=== PATIENT | female | born 1975 | race Caucasian/White ===

== ENCOUNTER 2016-05-22 17:49 | Emergency (ER) | payer OTHER ==
--- NOTE | 2016-05-22 18:44 | ED ---
Alcohol HPI - General Chief Complaint: Alcohol Stated Complaint: ETOH Time Seen by Provider: 05/22/16 18:14 Source: patient Mode of arrival: ambulatory Limitations: no limitations - History of Present Illness Initial Comments: 41-year-old female with history of alcoholism as over the last several months. Been eating well. His posterior feet swelling she would like to quit she has no suicidal ideation. 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 His been drinking up to a fifth of alcohol per day. No nausea no vomiting no diarrhea no chest pain shortness breath dizziness no focal numbness or weakness no unsteadiness. Last drink 3-4 hours ago - Related Data Home Medications Medication Instructions Recorded Confirmed Albuterol Inhaler [Ventolin Hfa 2 puff INHALATION RT-Q6H PRN 05/22/16 05/22/16 Inhaler] Multivitamin [Multivitamins Adult 1 tab PO DAILY 05/22/16 05/22/16 Gummies] Previous Rx's Medication Instructions Recorded LORazepam [Ativan] 1 mg PO DIRECTED #16 tab 05/22/16 Thiamine [Vitamin B-1] 100 mg PO DAILY #30 tablet 05/22/16 Allergies Allergy/AdvReac Type Severity Reaction Status Date / Time codeine Allergy Hallucinati Verified 05/22/16 18:52 ons Review of Systems ROS Statement: Those systems with pertinent positive or pertinent negative responses have been documented in the HPI. ROS Other: All systems not noted in ROS Statement are negative. Eyes: Denies: eye pain ENT: Denies: ear pain Respiratory: Denies: cough Cardiovascular: Denies: chest pain Endocrine: Denies: fatigue Gastrointestinal: Denies: nausea, vomiting, diarrhea Skin: Denies: rash Neurological: Denies: headache Psychiatric: Reports: depression. Denies: anxiety Hematological/Lymphatic: Denies: easy bleeding, easy bruising Past Medical History Past Medical History: No Reported History History of Any Multi-Drug Resistant Organisms: None Reported Past Surgical History: Orthopedic Surgery Past Psychological History: Anxiety Smoking Status: Current every day smoker Past Alcohol Use History: Abuse, Daily, Heavy Past Drug Use History: None Reported General Exam Limitations: no limitations General appearance: alert Head exam: Present: atraumatic Eye exam: Present: normal appearance, PERRL, EOMI ENT exam: Present: normal oropharynx, mucous membranes moist Respiratory exam: Present: normal lung sounds bilaterally Cardiovascular Exam: Present: regular rate, normal heart sounds GI/Abdominal exam: Present: soft, tenderness, guarding Neurological exam: Present: alert, CN II-XII intact Psychiatric exam: Present: normal affect, normal mood Skin exam: Present: warm, dry Course Vital Signs 05/22/16 17:57 Temperature 98.1 F Pulse Rate 118 H Respiratory 20 Rate Blood Pressure 135/94 O2 Sat by Pulse 99 Oximetry Medical Decision Making - Medical Decision Making Discussed with patient that she has some swelling prior from poor nutrition she needs to take a multivitamin will place her on thiamine also Ativan if she is to follow-up with believe she would do well taking some Zoloft or other antidepressant have recommended AA as well as going to a treatment program with outpatient or inpatient - Lab Data Result diagrams: 05/22/16 18:57 05/22/16 18:57 Lab Results 05/22/16 05/22/16 05/22/16 Range/Units 18:57 18:57 18:57 WBC 5.6 (3.8-10.6) k/uL RBC 3.97 (3.80-5.40) m/uL Hgb 11.4 (11.4-16.0) gm/dL Hct 36.9 (34.0-46.0) % MCV 92.8 (80.0-100.0) fL MCH 28.8 (25.0-35.0) pg MCHC 31.0 (31.0-37.0) g/dL RDW 27.7 H (11.5-15.5) % Plt Count 269 (150-450) k/uL Neutrophils % (Manual) 58.0 % Lymphocytes % (Manual) 31.0 % Monocytes % (Manual) 10.0 % Eosinophils % (Manual) 1.0 % Neutrophils # (Manual) 3.2 (1.3-7.7) k/uL Lymphocytes # (Manual) 1.7 (1.0-4.8) k/uL Monocytes # (Manual) 0.6 (0-1.0) k/uL Eosinophils # (Manual) 0.1 (0-0.7) k/uL Nucleated RBCs 0 (0-0) /100 WBC Manual Slide Review Performed Dimorphic RBCs Present Polychromasia Present Poikilocytosis (manual Present Anisocytosis Marked Anisocytosis (manual) Present Microcytosis Slight Macrocytosis Moderate Stomatocytes Present PT 11.2 (9.0-12.0) sec INR 1.1 (<1.1) Sodium 141 (137-145) mmol/L Potassium 4.2 (3.5-5.1) mmol/L Chloride 100 (98-107) mmol/L Carbon Dioxide 23 (22-30) mmol/L Anion Gap 18 mmol/L BUN 7 (7-17) mg/dL Creatinine 0.50 L (0.52-1.04) mg/dL Est GFR (MDRD) Af Amer >60 (>60 ml/min/1.73 sqM) Est GFR (MDRD) Non-Af >60 (>60 ml/min/1.73 sqM) Glucose 99 (74-99) mg/dL Calcium 9.4 (8.4-10.2) mg/dL Total Bilirubin 0.8 (0.2-1.3) mg/dL AST 287 H (14-36) U/L ALT 263 H (9-52) U/L Alkaline Phosphatase 182 H (38-126) U/L Total Protein 6.1 L (6.3-8.2) g/dL Albumin 3.5 (3.5-5.0) g/dL Serum Alcohol 288 mg/dL Disposition Clinical Impression: Alcoholic hepatitis, Alcohol abuse Disposition: HOME SELF-CARE Condition: Fair Instructions: Alcohol Withdrawal (ED) Prescriptions: LORazepam [Ativan] 1 mg PO DIRECTED #16 tab Thiamine [Vitamin B-1] 100 mg PO DAILY #30 tablet Time of Disposition: 20:34
[2016-05-22 19:20] LABS: ALT 263 U/L (9-52); AST 287 U/L (14-36); Alkaline Phosphatase 182 U/L (38-126); Anion Gap 18 mmol/L; Blood Urea Nitrogen 7 mg/dL (7-17); Calcium 9.4 mg/dL (8.4-10.2); Carbon Dioxide 23 mmol/L (22-30); Chloride 100 mmol/L (98-107); Glucose 99 mg/dL (74-99); Non-African American GFR(MDRD) >60 (>60 ml/min/1.73 sqM); Potassium 4.2 mmol/L (3.5-5.1); Sodium 141 mmol/L (137-145); Total Bilirubin 0.8 mg/dL (0.2-1.3); Total Protein 6.1 g/dL (6.3-8.2)
[2016-05-22 19:21] LABS: Anisocytosis Marked; CH 29.4; CHCM 31.8; HCT 36.9 % (34.0-46.0); HDW 2.45; HGB 11.4 gm/dL (11.4-16.0); MCH 28.8 pg (25.0-35.0); MCV 92.8 fL (80.0-100.0); Macrocytosis Moderate; Mean Platelet Volume 6.8; Microcytosis Slight; RBC 3.97 m/uL (3.80-5.40); WBC 5.6 k/uL (3.8-10.6); WBC (Perox) 5.59
[2016-05-22 19:24] LABS: INR 1.1 (<1.1); Prothrombin Time 11.2 sec (9.0-12.0); RDW 27.7 % (11.5-15.5)
[2016-05-22 19:30] LABS: Alcohol 288 mg/dL
[2016-05-22 19:50] LABS: Add Differential Manual Differential
[2016-05-22 19:53] LABS: Nucleated Red Blood Cells 0 /100 WBC (0-0); Polychromasia Present; Stomatocytes Present; Total Cells Counted 100
[2016-05-22 19:54] LABS: Manual Review Performed
[2016-05-22 20:54] VITALS: BP 118/78; PULSE 103; RESP 18; TEMP 98
== END 2016-05-22 20:53 | disposition home or self-care (01) ==
LOC: EC 17:49
DX: K70.10 Alcoholic hepatitis without ascites (principal); M79.89 Other specified soft tissue disorders; F17.200 Nicotine dependence, unspecified, uncomplicated; Z79.899 Other long term (current) drug therapy; Z88.5 Allergy status to narcotic agent
CPT/HCPCS: 36415; 80053; 80320; 82075; 85025; 85610; 99284

== ENCOUNTER 2016-07-09 22:57 | Emergency (ER) | payer OTHER ==
[2016-07-09 23:12] VITALS: BP 135/103; PULSE 129; RESP 18; TEMP 98
--- NOTE | 2016-07-09 23:29 | ED ---
Alcohol HPI - General Chief Complaint: Alcohol Stated Complaint: ETOH Time Seen by Provider: 07/09/16 23:15 Source: patient, family, RN notes reviewed Mode of arrival: ambulatory Limitations: no limitations - History of Present Illness Initial Comments: This is a 41-year-old female presents emergency Department with chief complaint of alcohol abuse. Patient states she's long history of alcohol abuse multiple stents to be and so her. Patient is brought here by family request medications for with jaws. Patient did drink today and she normally drinks 1/5 of alcohol daily. Patient states that she is ready be sober is currently being set up with a and safe environment at home. Patient's is intoxicated and brought by family at this time. Patient has no physical complaints. Patient has a chest pain, shortness breath, nausea, vomiting, seizures. Patient states she does wake up shaky after 8-12 hours and not drinking. - Related Data Previous Rx's Medication Instructions Recorded chlordiazePOXIDE HCl [Librium] 25 mg PO QID #20 capsule 07/09/16 Allergies Allergy/AdvReac Type Severity Reaction Status Date / Time codeine Allergy Hallucinati Verified 07/09/16 23:12 ons Review of Systems ROS Statement: Those systems with pertinent positive or pertinent negative responses have been documented in the HPI. ROS Other: All systems not noted in ROS Statement are negative. Past Medical History Past Medical History: No Reported History History of Any Multi-Drug Resistant Organisms: None Reported Past Surgical History: Orthopedic Surgery Past Psychological History: Anxiety Smoking Status: Current every day smoker Past Alcohol Use History: Abuse, Daily, Heavy Past Drug Use History: None Reported General Exam Limitations: no limitations General appearance: alert, in no apparent distress Head exam: Present: atraumatic, normocephalic, normal inspection Eye exam: Present: normal appearance, PERRL, EOMI. Absent: scleral icterus, conjunctival injection, periorbital swelling ENT exam: Present: normal exam, normal oropharynx, mucous membranes moist Respiratory exam: Present: normal lung sounds bilaterally. Absent: respiratory distress, wheezes, rales, rhonchi, stridor Cardiovascular Exam: Present: normal rhythm, tachycardia, normal heart sounds. Absent: systolic murmur, diastolic murmur, rubs, gallop, clicks GI/Abdominal exam: Present: soft, normal bowel sounds. Absent: distended, tenderness, guarding, rebound, rigid Neurological exam: Present: alert, oriented X3, CN II-XII intact Course Vital Signs 07/09/16 23:09 Temperature 98.0 F Pulse Rate 129 H Respiratory 18 Rate Blood Pressure 135/103 O2 Sat by Pulse 97 Oximetry Medical Decision Making - Medical Decision Making 41-year-old female presented emergency department for alcohol abuse. Patient be given Librium at this time. Patient will follow up outpatient with primary care physician, a and [place] if needed. Return parameters were discussed. Disposition Clinical Impression: Alcohol abuse Disposition: HOME SELF-CARE Condition: Stable Instructions: Alcohol Withdrawal (ED) Additional Instructions: Please return to the Emergency Department if symptoms worsen or any other concerns. Prescriptions: chlordiazePOXIDE HCl [Librium] 25 mg PO QID #20 capsule Referrals: None,Stated [Primary Care Provider] - 1-2 days Time of Disposition: 23:28
== END 2016-07-09 23:43 | disposition home or self-care (01) ==
LOC: EC 22:57
DX: F10.10 Alcohol abuse, uncomplicated (principal); R00.0 Tachycardia, unspecified; F17.200 Nicotine dependence, unspecified, uncomplicated; Z88.5 Allergy status to narcotic agent
CPT/HCPCS: 99283

== ENCOUNTER 2017-03-08 14:36 | Emergency (ER) | payer OTHER ==
[2017-03-08 15:04] VITALS: TEMP 98.1
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
[2017-03-08 16:07] VITALS: BP 132/79; PULSE 78; RESP 18
== END 2017-03-08 16:06 | disposition home or self-care (01) ==
LOC: SUPCPDRO 14:36 → EC 14:36
DX: S40.011A Contusion of right shoulder, initial encounter (principal); S70.02XA Contusion of left hip, initial encounter; S20.211A Contusion of right front wall of thorax, initial encounter; S70.01XA Contusion of right hip, initial encounter; S80.12XA Contusion of left lower leg, initial encounter; S00.83XA Contusion of other part of head, initial encounter; F17.200 Nicotine dependence, unspecified, uncomplicated; Z88.5 Allergy status to narcotic agent; Y09 Assault by unspecified means; Y92.009 Unspecified place in unspecified non-institutional (private) residence as the place of occurrence of the external cause
CPT/HCPCS: 99284

== ENCOUNTER 2017-12-08 21:16 | Emergency (ER) | payer BC, OTHER ==
[2017-12-08 21:41] VITALS: RESP 18
[2017-12-08 22:15] LABS: Amorphous Sediment,Urine Rare /hpf; Appearance,Urine Cloudy (Clear); Bilirubin,Urine Negative (Negative); Blood,Urine Negative (Negative); Color,Urine Yellow; Glucose,Urine (UA) Negative (Negative); Ketones,Urine Negative (Negative); Leukocyte Esterase,Urine Small (Negative); Mucus,Urine Rare /hpf; Nitrite,Urine Negative (Negative); Protein,Urine Trace (Negative); RBC,Urine 1 /hpf (0-5); Specific Gravity,Urine 1.015 (1.001-1.035); Squamous Epithelial Cell,Urine <1 /hpf (0-4); WBC,Urine 23 /hpf (0-5)
[2017-12-08] MEDS ORDERED: NITROFURANTOIN MONOHYD/M-CRYST 100 MG CAP PO STA (22:42)
[2017-12-08] MEDS ORDERED: PHENAZOPYRIDINE 100 MG TAB PO STA (22:42)
--- NOTE | 2017-12-08 22:46 | ED ---
Female Urogenital HPI - General Chief complaint: Urogenital Stated complaint: Poss UTI Time Seen by Provider: 12/08/17 22:20 Source: patient Mode of arrival: ambulatory Limitations: no limitations - History of Present Illness Initial comments: This patient is a 42-year-old woman who presents with complaint that she believes she has urinary tract infection. She states that going on 3-4 days now she has been having increasingly worse symptoms. She describes having urinary frequency, dysuria, and today a little bit of pelvic discomfort. She states she has had these identical symptoms previously with urinary tract infection. She denies systemic symptoms, no fever or chills, no palpitations or tachycardia, no chest pain, dyspnea, abdominal pain. MD Complaint: dysuria Onset/Timin -: days(s) Location: suprapubic Severity: mild Quality: dull Consistency: constant Improves with: none Worsens with: urination Last Menstrual Period: 12/08/17 Patient : No - Related Data Home Medications Medication Instructions Recorded Confirmed Ascorbic Acid [Vitamin C] 1,000 mg PO DAILY 03/08/17 12/08/17 Magnesium(Unknown Dose) 1 tab PO DAILY 03/08/17 12/08/17 Multivit with Calcium,Iron,Min 1 tab PO DAILY 03/08/17 12/08/17 [Women's Multivitamin] Zinc 50 mg PO DAILY 03/08/17 12/08/17 Fish Oil(Unknown Dose) 1 cap PO DAILY 12/08/17 12/08/17 Iron(Unknown Dose) 1 tab PO DAILY 12/08/17 12/08/17 Vitamin C/Biotin [Hair, Skin and 1 tab PO DAILY 12/08/17 12/08/17 Nails] Previous Rx's Medication Instructions Recorded Nitrofurantoin Monohyd/M-Cryst 100 mg PO Q12HR #6 cap 12/08/17 [Macrobid] Phenazopyridine [Pyridium] 100 mg PO TID #6 tablet 12/08/17 Allergies Allergy/AdvReac Type Severity Reaction Status Date / Time codeine AdvReac Hallucinati Verified 12/08/17 22:01 ons Review of Systems ROS Statement: Those systems with pertinent positive or pertinent negative responses have been documented in the HPI. ROS Other: All systems not noted in ROS Statement are negative. Constitutional: Denies: fever, chills Respiratory: Denies: cough, dyspnea Cardiovascular: Denies: chest pain, palpitations Gastrointestinal: Denies: abdominal pain, vomiting, diarrhea Genitourinary: Reports: urgency, dysuria, frequency. Denies: discharge Musculoskeletal: Denies: back pain Skin: Denies: rash Past Medical History Past Medical History: No Reported History History of Any Multi-Drug Resistant Organisms: None Reported Past Surgical History: Orthopedic Surgery Past Psychological History: Anxiety Smoking Status: Current every day smoker Past Alcohol Use History: Daily Past Drug Use History: None Reported General Exam Limitations: no limitations General appearance: alert, in no apparent distress Head exam: Present: atraumatic, normocephalic Respiratory exam: Present: normal lung sounds bilaterally. Absent: respiratory distress, wheezes, rales, rhonchi, stridor Cardiovascular Exam: Present: regular rate, normal rhythm, normal heart sounds. Absent: systolic murmur, diastolic murmur, rubs, gallop GI/Abdominal exam: Present: soft. Absent: distended, tenderness, guarding, rebound, rigid, mass Back exam: Present: normal inspection. Absent: CVA tenderness (R), CVA tenderness (L) Skin exam: Present: warm, dry, intact, normal color. Absent: rash Course Vital Signs 12/08/17 21:39 Temperature 98.1 F Pulse Rate 81 Respiratory 18 Rate Blood Pressure 127/75 O2 Sat by Pulse 99 Oximetry Medical Decision Making - Lab Data Lab Results 12/08/17 12/08/17 Range/Units 21:41 21:41 Urine Color Yellow Urine Appearance Cloudy H (Clear) Urine pH 7.0 (5.0-8.0) Ur Specific Vancleve 1.015 (1.001-1.035) Urine Protein Trace H (Negative) Urine Glucose (UA) Negative (Negative) Urine Ketones Negative (Negative) Urine Blood Negative (Negative) Urine Nitrite Negative (Negative) Urine Bilirubin Negative (Negative) Urine Urobilinogen 2.0 (<2.0) mg/dL Ur Leukocyte Esterase Small H (Negative) Urine RBC 1 (0-5) /hpf Urine WBC 23 H (0-5) /hpf Ur Squamous Epith Cells <1 (0-4) /hpf Amorphous Sediment Rare H (None) /hpf Urine Mucus Rare H (None) /hpf Urine HCG, Qual Not Detected (Not Detectd) Disposition Clinical Impression: Urinary tract infection Disposition: HOME SELF-CARE Condition: Good Instructions: Urinary Tract Infection in Women (ED) Prescriptions: Nitrofurantoin Monohyd/M-Cryst [Macrobid] 100 mg PO Q12HR #6 cap Phenazopyridine [Pyridium] 100 mg PO TID #6 tablet Is patient prescribed a controlled substance at d/c from ED?: No Referrals: Samuel Bowman DO [Primary Care Provider] - 1-2 days
[2017-12-08 23:01] VITALS: BP 118/88; PULSE 87; TEMP 98.6
== END 2017-12-08 22:57 | disposition home or self-care (01) ==
LOC: EC 21:16
DX: N39.0 Urinary tract infection, site not specified (principal); F17.200 Nicotine dependence, unspecified, uncomplicated; Z79.899 Other long term (current) drug therapy; Z88.5 Allergy status to narcotic agent
CPT/HCPCS: 81001; 81025; 99283

== ENCOUNTER 2021-06-09 10:14 | Day surgery (SDC) | payer BC, OTHER ==
[2021-06-08 08:41] VITALS: BMI 19.8
--- NOTE | 2021-06-08 13:33 | P.HPOR ---
History of Present Illness H&P Date: 06/08/21 Chief Complaint: Right ring finger proximal phalanx malunion Subjective: This is a 46 year old female that presents today for initial evaluation regarding a right ring finger injury that occurred on 02/26/21, 3 months ago. Patient states she hit her finger while sleeping and woke up with a swollen and painful finger, she tried to get her ring off with assistance of her family member but while taking the ring off she felt a snap. X-rays were taken at that time and she was told she needed surgery but elected to treat it non-operatively with weston taping. Ultimately her pain never got better and during this time she was in rehab for ETOH sobriety. She states now she cannot use the hand or make a fist due to pain and deformity and has constant pain and cannot lift her grandchildren or do any activities with the right hand, she is right handed. Physical Examination: RUE: AIN/PIN/Radial/Ulnar/Median motor intact. Radial/Ulnar/Median SILT. 2+/4 Radial/Ulnar pulses palpated. 5/5 APB, 5/5 FDI. Negative Finkelsteins, negative CMC grind, negative Durkan's compression. Unable to make a full fist. MCP ROM 0- 75. PIP ROM 5-60 with pain during motion. TTP with any palpation of ring finger proximal phalanx. Obvious rotational deformity with partially clenched fist. Imaging: X-Rays of the right hand demonstrate right ring finger oblique proximal phalanx fracture with 4mm of ulnar translation and 6mm of shortening. Callous formation present but fracture line evident. Impression: 1.) Right ring finger proximal phalanx malunion. Plan: Diagnosis and treatment options were discussed with the patient. We discussed the complexity of her situation since her fracture is now 3 months old with signs of bridging callous formation. She states she is unable to use this hand due to the deformity and pain and would like it addressed. I discussed that she would require an osteotomy of her healed proximal phalanx malunion with the main goal of the surgery being to correct the rotational deformity to give her a more functional hand. Need for post operative therapy was discussed and she was understanding and agreeable with this plan. She will be scheduled for a right ring finger proximal phalanx malunion corrective osteotomy in the near future. -Cristian Ventura DO Orthopedic Hand/Upper Extremity Surgeon Past Medical History Past Medical History: Asthma Additional Past Medical History / Comment(s): States was in Rehab for 74 days for Alcohol abuse. States she was recently discharged and states she is doing much better., Hx. of endometriosis. History of Any Multi-Drug Resistant Organisms: None Reported Past Surgical History: Orthopedic Surgery Additional Past Surgical History / Comment(s): R knee surgery, Laparotomy. Past Anesthesia/Blood Transfusion Reactions: No Reported Reaction Smoking Status: Former smoker - Past Family History Mother Family Medical History: No Reported History Medications and Allergies Home Medications Medication Instructions Recorded Confirmed Type Ascorbic Acid [Vitamin C] 1,000 mg PO DAILY 03/08/17 06/08/21 History Magnesium(Unknown Dose) 1 tab PO DAILY 03/08/17 06/08/21 History Multivit with Calcium,Iron,Min 1 tab PO DAILY 03/08/17 06/08/21 History [Women's Multivitamin] Zinc 50 mg PO DAILY 03/08/17 06/08/21 History Iron(Unknown Dose) 1 tab PO DAILY 12/08/17 06/08/21 History Vitamin C/Biotin [Hair, Skin and 1 tab PO DAILY 12/08/17 06/08/21 History Nails] Albuterol Inhaler [Ventolin Hfa 2 puff INHALATION RT-TID PRN 06/08/21 06/08/21 History Inhaler] busPIRone HCL [Buspar] 15 mg PO TID 06/08/21 06/08/21 History traZODone HCL 100 mg PO HS 06/08/21 06/08/21 History Allergies Allergy/AdvReac Type Severity Reaction Status Date / Time codeine Allergy Hallucinati Verified 06/08/21 08:41 ons clarithromycin [From Biaxin] AdvReac Nausea & Verified 06/08/21 08:41 Vomiting & Diarrhea Physical Examination Osteopathic Statement: *. No significant issues noted on an osteopathic structural exam other than those noted in the History and Physical/Consult.
[~2021-06-09 10:14] MED LIST: HYDROmorphone 0.5 MG/0.5 ML SYRINGE IVP PRN; LACTATED RINGERS 1,000 ML IV SCH; LIDOCAINE 1% (10MG/ML) FOR IV START INTRADERMA PRN
[2021-06-09] MEDS ORDERED: ONDANSETRON 4 MG/2 ML VIAL ONE ×2 (11:09→15:07)
[2021-06-09] MEDS ORDERED: DEXAMETHASONE SOD PHOSPHATE 4 MG/ML 1 ML VIAL IVP ONE (11:10)
[2021-06-09 11:19] LABS: Anisocytosis Slight; Basophils # (A) 0.1 k/uL (0-0.2); Basophils % (A) 1 %; Eosinophils # (A) 0.2 k/uL (0-0.7); Eosinophils % (A) 2 %; HCT 47.2 % (34.0-46.0); HGB 14.6 gm/dL (11.4-16.0); Hypochromasia Slight; Lymphocytes # (A) 2.3 k/uL (1.0-4.8); Lymphocytes % (A) 22 %; MCH 30.9 pg (25.0-35.0); MCV 99.7 fL (80.0-100.0); Macrocytosis Slight; Mean Platelet Volume 7.1; Monocytes # (A) 0.5 k/uL (0-1.0); Monocytes % (A) 5 %; Neutrophils # (A) 7.3 k/uL (1.3-7.7); Neutrophils % (A) 70 %; Platelet Count 329 k/uL (150-450); RBC 4.73 m/uL (3.80-5.40); RDW 17.2 % (11.5-15.5); WBC 10.5 k/uL (3.8-10.6)
[2021-06-09] MEDS ORDERED: PHENYLEPHRINE-0.9% NACL SYG 1,000 MCG/10 ML SYRINGE ONE (11:50)
[2021-06-09] MEDS ORDERED: MIDAZOLAM 2 MG/2 ML VIAL ONE (11:50)
[2021-06-09] MEDS ORDERED: LIDOCAINE 2% INJ 20 MG/ML (2 ML VIAL) ONE (11:50)
[2021-06-09] MEDS ORDERED: HYDROmorphone (PF) 1 MG/ML ONE (11:50)
[2021-06-09] MEDS ORDERED: PROPOFOL 10 MG/ML 20 ML VIAL IV ONE (11:50)
[2021-06-09] MEDS ORDERED: KETOROLAC 15 MG/ML 1 ML VIAL ONE (11:50)
[2021-06-09] MEDS ORDERED: fentaNYL (PF) 50 MCG/ML 2 ML AMP ONE (11:50)
[2021-06-09] MEDS ORDERED: BUPIVACAINE (PF) 0.25% 30 ML VIAL SQ ONE ×2 (12:22→14:13)
[2021-06-09 14:33] VITALS: TEMP 96.8
[2021-06-09 15:02] VITALS: BP 126/78; PULSE 81; RESP 18
[2021-06-09] MEDS ORDERED: HYDROcodone/APAP 5-325MG 1 EACH TAB ONE (15:07)
--- NOTE | 2021-06-09 20:20 | P.OP ---
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 Postoperative Diagnosis: Right ring finger proximal phalanx fracture chronic malunion. Procedure(s) Performed: 1.) Open treatment of right ring finger proximal phalanx fracture, chronic malunion with internal fixation. (37273) 2.) Right ring finger extensor tenolysis, complex, dorsum of finger (88164) Implants: Synthes 1.3mm screws x3. (11mm,12mm,12mm) Anesthesia: SURINDER Surgeon: Cristian Ventura Shuttle Veneering Supervisor #1: Antonio Patel Estimated Blood Loss (ml): 0 Pathology: none sent Condition: stable Disposition: PACU Description of Procedure: This is a 46 year old female who sustained a displaced and shortened right ring finger proximal phalanx fracture in February of 2021 that initially presented 3 months after her injury with complaints of continued pain, deformity and weakness of her right ring finger after she failed to seek treatment due to being in rehab for alcohol abuse. She presents today for surgical fixation of her right ring finger chronic proximal phalanx fracture malunion. Risks and benefits of surgery were discussed with the patient including bleeding, damage to surrounding tissue, infection, need for further surgery, stiffness, continued pain, as well as risks of anesthesia including pulmonary embolism and even and the patient wished to proceed with surgical intervention. The patient was seen in the pre-operative area by myself. Consent and H&P were completed and updated. The correct extremity was marked in the pre-operative area by myself and all other questions were answered. Operative Narrative: The patient was brought to the operating room by the department of anesthesia. They remained on the portable stretcher and a rolling hand table was brought to the side of the operative extremity. Pre-operative time out was performed indicating the correct patient, procedure and laterality. All in the room agreed. Pre-operative antibiotics were given prior to skin incision. The p atient was then drifted off to sleep by the department of anesthesia. A nonsterile tourniquet was then applied to the operative extremity and the right upper extremity was then prepped and draped in normal sterile fashion. The operative extremity was the exsanguinated with an esmarch bandage and the tourniquet was inflated to 250mmHg. A midaxial incision was made with a 15 blade scalpel over the medial boarder of the ring finger due to the nature and laterality of the shortened distal fragment. Blunt dissection was taken down through subcutaneous tissue taking care to stay dorsal to vital neurovascular structures. There was extensive callous formation along the medial distal boarder of the oblique fracture. Along with this the extensor tendon apparatus was very scarred down to the dorsal surface of the proximal phalanx fracture. 15 blade scalpel was used to subperiosteally dissect the extensor tendon from the dorsal portion of the proximal phalanx and perform tenolysis of the extensor tendon to the ring finger from the level of the MCP joint to the distal PIP joint. The scarred down medial lateral band was freed and excised in a triangular fashion to gain access to the fracture site. A freer elevator was then used to find the oblique fracture line on the dorsal aspect of the proximal phalanx which was confirmed with live flouroscopy. A small osteotome and mallet was then used to open the fracture site in it's entirety until the fracture fragment was freely mobile. [place] and scalpel was used to debride fracture edges which were rounded off in appearance. A towel clamp was then used to apply percutaneous longitudinal traction through the middle phalanx however the fracture was still not able to be pulled out to length. Due to extensive contracture and scarring of surrounding soft tissues and collateral ligaments further tenolysis was performed distally and the lateral distal fracture spike was further freed from surrounding adhesions. Traction was then applied again under live flouroscopy and reduction was held with pointed reduction clamps perpendicular to the fracture line. Three separate 0.035 K-wires were then inserted perpendicular to the fracture site. Reduction was checked on AP and lateral views and appeared to be adequate. [place] of digits with clench fist was corrected from previous rotational deformity with all digits now pointing towards the scaphoid tubercle. Initially a 1.3mm synthes VA plate was attempted to be placed as a neutralization plate however the plate was not able to be placed flush against the abnormal rounded and thin edges of the proximal phalanx. Therefore decision to proceed with multiple screws was made. One by one, the three previously placed 0.035 K-wires were removed and filled with 1.3mm non-locking screws inserted perpendicular to the fracture site with bicortical purchase. Correct alignment and screw placement and length was confirmed with mini c arm and the fracture was stable to stress. The wound was t hen copiously irrigated and closure was performed with interrupted 4-0 Monocryl sutures followed by a running 4-0 nylon suture. A digital block was then performed with 10cc's of .25% Bupivicaine. Adaptic, 4x4's and an ulnar gutter splint was then applied to the hand in an intrinsic plus position. Tourniquet was then let down and the digit had immediate normal perfusion. The patient was then woken by the department of anesthesia and transferred to PACU in stable condition. Annette JI was present for the case and assisted in fracture reduction, retraction, and hardware placement. Cristian Ventura D.O. Orthopedic Hand/Upper Extremity Surgeon
== END 2021-06-09 16:07 | disposition home or self-care (01) ==
LOC: OR 10:14
PROVIDERS: ATTEND Orthopaedic Surgery Hand Surgery
DX: S62.614A Displaced fracture of proximal phalanx of right ring finger, initial encounter for closed fracture (principal); W22.8XXA Striking against or struck by other objects, initial encounter; F17.210 Nicotine dependence, cigarettes, uncomplicated; J45.909 Unspecified asthma, uncomplicated; Z79.899 Other long term (current) drug therapy; Z88.5 Allergy status to narcotic agent; Z98.890 Other specified postprocedural states
CPT/HCPCS: 81025; 85025; 26735; C1713; J2250; J1100; J2405; J0690; J3010; J1170; J1885; J2370; J2704; J2001

== ENCOUNTER 2024-04-17 16:23 | Observation (INO) | payer OTHER ==
--- NOTE | 2024-04-17 16:55 | ED ---
Alcohol HPI - General Source: family Mode of arrival: ambulatory Limitations: no limitations <Moe Alonzo - Last Filed: 04/17/24 16:52> <Mehul Morris - Last Filed: 04/17/24 20:41> - General Stated Complaint: ETOH Time Seen by Provider: 04/17/24 16:38 - History of Present Illness Initial Comments: This is a 49-year-old female with history of EtOH abuse and liver failure presenting with significant other for EtOH abuse. Significant other states patient has had 6/5 of vodka in the past several days. States uses and worsening over the past 4 months. States patient has not been eating or drinking, expressing concern for worsening condition of liver and kidneys. Also mentions patient possibly making suicidal ideation remarks. Patient endorses fall in the shower last night, striking her head and chin with possible loss of consciousness. (Moe Alonzo) This is a 49-year-old female who presents to the emergency department stating that she is an alcoholic and has been drinking very heavily since Monday since she and her significant other got into an argument. Patient states drinking a lot of vodka since Monday. Patient states she just feels nauseous now and is concerned that she may have damaged her liver or kidneys so she comes into the emergency department. Patient wants help and she would like to quit drinking. Patient states she also fell last night in the shower and has a contusion to the left side of her head and a contusion on her chin. Patient's not sure if she lost consciousness. Patient denies any neck pain. Patient has numbness weakness. (Mehul Morris) - Related Data Home Medications Medication Instructions Recorded Confirmed Ascorbic Acid [Vitamin C] 1,000 mg PO DAILY 03/08/17 06/09/21 Magnesium(Unknown Dose) 1 tab PO DAILY 03/08/17 06/09/21 Multivit with Calcium,Iron,Min 1 tab PO DAILY 03/08/17 06/09/21 [Women's Multivitamin] Zinc 50 mg PO DAILY 03/08/17 06/09/21 Iron(Unknown Dose) 1 tab PO DAILY 12/08/17 06/09/21 Vitamin C/Biotin [Hair, Skin and 1 tab PO DAILY 12/08/17 06/09/21 Nails] Albuterol Inhaler [Ventolin Hfa 2 puff INHALATION RT-TID PRN 06/08/21 06/09/21 Inhaler] busPIRone HCL [Buspar] 15 mg PO TID 06/08/21 06/09/21 traZODone HCL 100 mg PO HS 06/08/21 06/09/21 Previous Rx's Medication Instructions Recorded HYDROcodone/APAP 5-325MG [[place]ayer 1 tab PO Q6HR PRN 3 Days #24 tab 06/09/21 5-325] Allergies Allergy/AdvReac Type Severity Reaction Status Date / Time codeine Allergy Hallucinati Verified 04/17/24 17:18 ons clarithromycin [From Biaxin] AdvReac Nausea & Verified 04/17/24 17:18 Vomiting & Diarrhea Review of Systems ROS Other: All systems not noted in ROS Statement are negative. <Moe Alonzo - Last Filed: 04/17/24 16:52> ROS Other: All systems not noted in ROS Statement are negative. <Mehul Morris - Last Filed: 04/17/24 20:41> ROS Statement: Those systems with pertinent positive or pertinent negative responses have been documented in the HPI. Past Medical History Past Medical History: Asthma Additional Past Medical History / Comment(s): States was in Rehab for 74 days for Alcohol abuse. States she was recently discharged and states she is doing much better., Hx. of endometriosis. History of Any Multi-Drug Resistant Organisms: None Reported Past Surgical History: Orthopedic Surgery Additional Past Surgical History / Comment(s): R knee surgery, Laparotomy. Past Anesthesia/Blood Transfusion Reactions: No Reported Reaction Smoking Status: Former smoker - Past Family History Mother Family Medical History: No Reported History <Moe Alonzo - Last Filed: 04/17/24 16:52> General Exam <Moe Alonzo - Last Filed: 04/17/24 16:52> <Mehul Morris - Last Filed: 04/17/24 20:41> - General Exam Comments Initial Comments: Visual Physical Exam Vital signs reviewed General: Patient appears slightly inebriated. Nontoxic, no acute distress. Head: Normocephalic. Contusion noted on left chin Eyes: PERRLA, EOMI ENT: Airway patent Chest: Nonlabored breathing Skin: No visual rash, normal skin tone Neuro: Alert and oriented 3 Musculoskeletal: No gross abnormalities (Moe Alonzo) GENERAL: Patient is well-developed and well-nourished. Patient is nontoxic and well- hydrated and is in mild distress. Patient has a tender spot in the left parietal region of her scalp ENT: Neck is soft and supple. No significant lymphadenopathy is noted. Oropharynx is clear. Moist mucous membranes. Neck has full range of motion without eliciting any pain. EYES: The sclera were anicteric and conjunctiva were pink and moist. Extraocular movements were intact and pupils were equal round and reactive to light. Eyelids were unremarkable. PULMONARY: Unlabored respirations. Good breath sounds bilaterally. No audible rales rhonchi or wheezing was noted. CARDIOVASCULAR: Patient has a heart rate of 140 beats a minute and regular ABDOMEN: Soft and nontender with normal bowel sounds. No palpable organomegaly was not ed. There is no palpable pulsatile mass. SKIN: Patient has a contusion to the left side of her chin though she is able to move her jaw freely NEUROLOGIC: Patient is alert and oriented x3. Cranial nerves II through XII are grossly intact. Motor and sensory are also intact. Normal speech, volume and content. Symmetrical smile. MUSCULOSKELETAL: Normal extremities with adequate strength and full range of motion. No lower extremity swelling or edema. No calf tenderness. LYMPHATICS: No significant lymphadenopathy is noted PSYCHIATRIC: Normal psychiatric evaluation. (Mehul Morris) Course Vital Signs 04/17/24 17:08 Temperature 98.3 F Pulse Rate 138 H Respiratory 18 Rate Blood Pressure 143/104 O2 Sat by Pulse 94 L Oximetry Medical Decision Making <Moe Alonzo - Last Filed: 04/17/24 16:52> - Lab Data Result diagrams: 04/17/24 17:45 04/17/24 17:45 <Mehul Morris - Last Filed: 04/17/24 20:41> - Medical Decision Making I completed the quick note portion of this chart signed TIAGO Mcgovern (Moe Alonzo) EKG is interpreted by myself. EKG shows sinus tachycardia at 145 bpm AK interval 138 QRS is 82 QT interval is 282 QTc is 365. Patient's EKG shows no ST segment elevation or depression Was pt. sent in by a medical professional or institution (MARGY Odell, EXECUTIVE OFFICE MANAGER, urgent care, hospital, or fpc...) When possible be specific @ -No Did you speak to anyone other than the patient for history (EMS, parent, family, police, friend...)? What history was obtained from this source @ -No Did you review nursing and triage notes (agree or disagree)? Why? @ -I reviewed and agree with nursing and triage notes Were old charts reviewed (outside hosp., previous admission, EMS record, old EKG, old radiological studies, urgent care reports/EKG's, fpc records)? Report findings @ -No old charts were reviewed Differential Diagnosis? @ -Alcohol withdrawal, alcohol intoxication, tachycardia EKG interpreted by me (3pts min.). @ -As above X-rays interpreted by me (1pt min.). @ -None done CT interpreted by me (1pt min.). @ -None done U/S interpreted by me (1pt. min.). @ -None done What testing was considered but not performed or refused? (CT, X-rays, U/S, labs)? Why? @ -None What meds were considered but not given or refused? Why? @ -None Did you discuss the management of the patient with other professionals (professionals i.e. , PA, EXECUTIVE OFFICE MANAGER, lab, RT, psych nurse, social human services assistants, fishing tool supervisor, teacher, control systems drafting officer, casey saw operator)? Give summary @ -I spoke with sound physicians agreed to admit the patient admit the patient wrote admitting orders Was smoking cessation discussed for >3mins.? @ -No Was critical care preformed (if so, how long)? @ -No Were there social determinants of health that impacted care today? How? (Homelessness, low income, unemployed, alcoholism, drug addiction, transpor tation, low edu. Level, literacy, decrease access to med. care, penitentiary, rehab)? @ -No Was there de-escalation of care discussed even if they declined (Discuss DNR or withdrawal of care, Hospice)? DNR status @ -No What co-morbidities impacted this encounter? (DM, HTN, Smoking, COPD, CAD, Cancer, CVA, ARF, Chemo, Hep., AIDS, mental health diagnosis, sleep apnea, morbid obesity)? @ -None Was patient admitted / discharged? Hospital course, mention meds given and route, prescriptions, significant lab abnormalities, going to OR and other pertinent info. @ -Patient came in tachycardic at about 140+ beats a minute. Patient was given 0.5 of Ativan but she continued having the shakes and continuing nauseous. Patient was given Zofran. Patient states in the past she gets the shakes so bad she cannot do anything or function. I spoke with the patient about possibly being discharged home physical follow-up with [facility] and she stated she did not like the place she was there before and would not go to [facility] would stay home and try to do it on her own. Patient remains tachycardic at 13 0+ beats after over a liter of fluid and Ativan x 2. I spoke with the patient about possibly making any suicidal comments she absolutely denied it I did this on a couple of different occasions and over occasion she was 100% and denials that she never want to hurt herself she just afraid that with her drinking is going to hurt her. Undiagnosed new problem with uncertain prognosis? @ -No Drug Therapy requiring intensive monitoring for toxicity (Heparin, Nitro, Insulin, Cardizem)? @ -No Were any procedures done? @ -No Diagnosis/symptom? @ -Alcohol withdrawal Acute, or Chronic, or Acute on Chronic? @ -Acute Uncomplicated (without systemic symptoms) or Complicated (systemic symptoms)? @ -Complicated Side effects of treatment? @ -No Exacerbation, Progression, or Severe Exacerbation? @ -No Poses a threat to life or bodily function? How? (Chest pain, [place], [place], pneumonia, PE, COPD, DKA, ARF, appy, cholecystitis, CVA, Diverticulitis, Homicidal, Suicidal, threat to staff... and all critical care pts) @ -Yes this could lead to seizures and possible Diagnosis/symptom? @ -Alcohol intoxication Acute, or Chronic, or Acute on Chronic? @ -Acute Uncomplicated (without systemic symptoms) or Complicated (systemic symptoms)? @ -Complicated Side effects of treatment? @ -None Exacerbation, Progression, or Severe Exacerbation] @ -No Poses a threat to life or bodily function? @ -No (Mehul Morris) - Lab Data Lab Results 04/17/24 04/17/24 04/17/24 Range/Units 17:30 17:45 17:45 WBC 12.0 H (3.8-10.6) k/uL RBC 5.12 (3.80-5.40) m/uL Hgb 12.8 (11.4-16.0) gm/dL Hct 41.2 (34.0-46.0) % MCV 80.6 (80.0-100.0) fL MCH 25.0 (25.0-35.0) pg MCHC 31.0 (31.0-37.0) g/dL RDW 18.6 H (11.5-15.5) % Plt Count 523 H (150-450) k/uL MPV 6.8 Neutrophils % 63 % Lymphocytes % 28 % Monocytes % 6 % Eosinophils % 1 % Basophils % 1 % Neutrophils # 7.6 (1.3-7.7) k/uL Lymphocytes # 3.3 (1.0-4.8) k/uL Monocytes # 0.7 (0-1.0) k/uL Eosinophils # 0.1 (0-0.7) k/uL Basophils # 0.1 (0-0.2) k/uL Hypochromasia Slight Anisocytosis Slight Microcytosis Slight PT (10.0-12.5) sec INR (<1.2) APTT (22.0-30.0) sec Sodium 138 (137-145) mmol/L Potassium 4.2 (3.5-5.1) mmol/L Chloride 99 (98-107) mmol/L Carbon Dioxide 20 L (22-30) mmol/L Anion Gap 19 mmol/L BUN 13 (7-17) mg/dL Creatinine 0.63 (0.52-1.04) mg/dL Est GFR (CKD-EPI)AfAm >90 (>60 ml/min/1.73 sqM) Est GFR (CKD-EPI)NonAf >90 (>60 ml/min/1.73 sqM) Glucose 121 H (74-99) mg/dL Calcium 9.8 (8.4-10.2) mg/dL Phosphorus 3.3 (2.5-4.5) mg/dL Magnesium 1.6 (1.6-2.3) mg/dL Total Bilirubin 0.7 (0.2-1.3) mg/dL AST 86 H (14-36) U/L ALT 53 H (4-34) U/L Alkaline Phosphatase 80 (38-126) U/L Troponin I (0.000-0.034) ng/mL Total Protein 8.3 H (6.3-8.2) g/dL Albumin 5.1 H (3.5-5.0) g/dL Urine Color Yellow Urine Appearance Cloudy H (Clear) Urine pH 6.0 (5.0-8.0) Ur Specific [place] 1.028 (1.001-1.035) Urine Protein 2+ H (Negative) Urine Glucose (UA) Negative (Negative) Urine Ketones 1+ H (Negative) Urine Blood Small H (Negative) Urine Nitrite Negative (Negative) Urine Bilirubin Negative (Negative) Urine Urobilinogen <2.0 (<2.0) mg/dL Ur Leukocyte Esterase Negative (Negative) Urine RBC 3 (0-5) /hpf Urine WBC 3 (0-5) /hpf Ur Squamous Epith Cells 5 H (0-4) /hpf Urine Bacteria Rare H (None) /hpf Hyaline Casts 10 H (0-2) /lpf Urine Mucus Moderate H (None) /hpf Urine Opiates Screen Not Detected (NotDetected) Ur Oxycodone Screen Not Detected (NotDetected) Urine Methadone Screen Not Detected (NotDetected) Ur Barbiturates Screen Not Detected (NotDetected) U Tricyclic Antidepress Not Detected (NotDetected) Ur Phencyclidine Scrn Not Detected (NotDetected) Ur Amphetamines Screen Not Detected (NotDetected) U Methamphetamines Scrn Not Detected (NotDetected) U Benzodiazepines Scrn Not Detected (NotDetected) Urine Cocaine Screen Not Detected (NotDetected) U Marijuana (THC) Screen Detected H (NotDetected) Serum Alcohol mg/dL 04/17/24 04/17/24 04/17/24 Range/Units 17:54 17:56 18:49 WBC (3.8-10.6) k/uL RBC (3.80-5.40) m/uL Hgb (11.4-16.0) gm/dL Hct (34.0-46.0) % MCV (80.0-100.0) fL MCH (25.0-35.0) pg MCHC (31.0-37.0) g/dL RDW (11.5-15.5) % Plt Count (150-450) k/uL MPV Neutrophils % % Lymphocytes % % Monocytes % % Eosinophils % % Basophils % % Neutrophils # (1.3-7.7) k/uL Lymphocytes # (1.0-4.8) k/uL Monocytes # (0-1.0) k/uL Eosinophils # (0-0.7) k/uL Basophils # (0-0.2) k/uL Hypochromasia Anisocytosis Microcytosis PT 10.6 (10.0-12.5) sec INR 0.9 (<1.2) APTT 22.5 (22.0-30.0) sec Sodium (137-145) mmol/L Potassium (3.5-5.1) mmol/L Chloride (98-107) mmol/L Carbon Dioxide (22-30) mmol/L Anion Gap mmol/L BUN (7-17) mg/dL Creatinine (0.52-1.04) mg/dL Est GFR (CKD-EPI)AfAm (>60 ml/min/1.73 sqM) Est GFR (CKD-EPI)NonAf (>60 ml/min/1.73 sqM) Glucose (74-99) mg/dL Calcium (8.4-10.2) mg/dL Phosphorus (2.5-4.5) mg/dL Magnesium (1.6-2.3) mg/dL Total Bilirubin (0.2-1.3) mg/dL AST (14-36) U/L ALT (4-34) U/L Alkaline Phosphatase (38-126) U/L Troponin I <0.012 (0.000-0.034) ng/mL Total Protein (6.3-8.2) g/dL Albumin (3.5-5.0) g/dL Urine Color Urine Appearance (Clear) Urine pH (5.0-8.0) Ur Specific [place] (1.001-1.035) Urine Protein (Negative) Urine Glucose (UA) (Negative) Urine Ketones (Negative) Urine Blood (Negative) Urine Nitrite (Negative) Urine Bilirubin (Negative) Urine Urobilinogen (<2.0) mg/dL Ur Leukocyte Esterase (Negative) Urine RBC (0-5) /hpf Urine WBC (0-5) /hpf Ur Squamous Epith Cells (0-4) /hpf Urine Bacteria (None) /hpf Hyaline Casts (0-2) /lpf Urine Mucus (None) /hpf Urine Opiates Screen (NotDetected) Ur Oxycodone Screen (NotDetected) Urine Methadone Screen (NotDetected) Ur Barbiturates Screen (NotDetected) U Tricyclic Antidepress (NotDetected) Ur Phencyclidine Scrn (NotDetected) Ur Amphetamines Screen (NotDetected) U Methamphetamines Scrn (NotDetected) U Benzodiazepines Scrn (NotDetected) Urine Cocaine Screen (NotDetected) U Marijuana (THC) Screen (NotDetected) Serum Alcohol 145 mg/dL Disposition <Moe Alonzo - Last Filed: 04/17/24 16:52> Time of Disposition: 19:59 <Mehul Morris - Last Filed: 04/17/24 20:41> Clinical Impression: Alcohol withdrawal syndrome, Alcoholic intoxication Disposition: ADMITTED IP TO THIS HOSP
[2024-04-17 17:54] LABS: Anisocytosis Slight; Basophils # (A) 0.1 k/uL (0-0.2); Basophils % (A) 1 %; Eosinophils # (A) 0.1 k/uL (0-0.7); Eosinophils % (A) 1 %; HCT 41.2 % (34.0-46.0); HGB 12.8 gm/dL (11.4-16.0); Hypochromasia Slight; Lymphocytes # (A) 3.3 k/uL (1.0-4.8); Lymphocytes % (A) 28 %; MCV 80.6 fL (80.0-100.0); Mean Platelet Volume 6.8; Microcytosis Slight; Monocytes # (A) 0.7 k/uL (0-1.0); Monocytes % (A) 6 %; Neutrophils # (A) 7.6 k/uL (1.3-7.7); Neutrophils % (A) 63 %; Platelet Count 523 k/uL (150-450); RBC 5.12 m/uL (3.80-5.40); RDW 18.6 % (11.5-15.5)
[2024-04-17 18:02] LABS: Appearance,Urine Cloudy (Clear); Bacteria,Urine Rare /hpf; Bilirubin,Urine Negative (Negative); Blood,Urine Small (Negative); Color,Urine Yellow; Glucose,Urine (UA) Negative (Negative); Hyaline Casts,Urine 10 /lpf (0-2); Ketones,Urine 1+ (Negative); Leukocyte Esterase,Urine Negative (Negative); Mucus,Urine Moderate /hpf; Nitrite,Urine Negative (Negative); Protein,Urine 2+ (Negative); RBC,Urine 3 /hpf (0-5); Specific Gravity,Urine 1.028 (1.001-1.035); Squamous Epithelial Cell,Urine 5 /hpf (0-4); Urobilinogen,Urine <2.0 mg/dL (<2.0); WBC,Urine 3 /hpf (0-5)
[2024-04-17 18:03] LABS: ALT 53 U/L (4-34); AST 86 U/L (14-36); African American GFR (CKD) >90 (>60 ml/min/1.73 sqM); Albumin 5.1 g/dL (3.5-5.0); Alkaline Phosphatase 80 U/L (38-126); Anion Gap 19 mmol/L; Blood Urea Nitrogen 13 mg/dL (7-17); Calcium 9.8 mg/dL (8.4-10.2); Carbon Dioxide 20 mmol/L (22-30); Chloride 99 mmol/L (98-107); Glucose 121 mg/dL (74-99); Magnesium 1.6 mg/dL (1.6-2.3); Non-African American GFR(CKD) >90 (>60 ml/min/1.73 sqM); Phosphorus 3.3 mg/dL (2.5-4.5); Potassium 4.2 mmol/L (3.5-5.1); Sodium 138 mmol/L (137-145); Total Bilirubin 0.7 mg/dL (0.2-1.3); Total Protein 8.3 g/dL (6.3-8.2)
[2024-04-17 18:09] LABS: Amphetamine Screen,Urine Not Detected (NotDetected); Barbiturate Screen,Urine Not Detected (NotDetected); Benzodiazepines Screen,Urine Not Detected (NotDetected); Cocaine Screen,Urine Not Detected (NotDetected); Methadone Screen, Urine Not Detected (NotDetected); Opiate Screen,Urine Not Detected (NotDetected); Oxycodone Screen, Urine Not Detected (NotDetected); Phencyclidine Screen,Urine Not Detected (NotDetected); Tricyclic Antidepressant,Urine Not Detected (NotDetected); Urn Cannabinoid Scrn Detected (NotDetected)
[2024-04-17] MEDS: ONDANSETRON 4 MG/2 ML VIAL IVP STA (18:15)
[2024-04-17] MEDS: LORazepam 2 MG/ML INJ IV STA ×2 (18:20→20:59)
[2024-04-17] MEDS: SODIUM CHLORIDE 0.9% 1,000 ML IV ONE ×3 (18:22→21:01)
--- NOTE | 2024-04-17 18:34 | CT ---
EXAMINATION TYPE: CT brain cspine wo con DATE OF EXAM: 04/17/2024 6:05 PM COMPARISON: None. CLINICAL INDICATION: Female, 49 years old with history of Fall with LOC; Fall w/LOC., pain TECHNIQUE: Brain: Multiple axial CT images of the brain were obtained without IV contrast. Cspine: Axial CT images from the skull base to the inferior aspect of T2 we obtained without intraven ous contrast. Coronal and sagittal reformatted images were also reviewed. . CT DLP: 1296.5 mGycm, Automated exposure control for dose reduction was used. FINDINGS: Brain: Extra-axial spaces: No abnormal extra-axial fluid collections. Ventricular system: Within normal limits Cerebral parenchyma: No acute intraparenchymal hemorrhage or mass effect. The campuzano-white junction is well differentiated. Cerebellum: Unremarkable. Mass effect: No evidence of midline shift. Intracranial vasculature: unremarkable Soft tissues: Normal. Calvarium/osseous structures: No depressed skull fracture. Paranasal sinuses and mastoid air cells: Clear. Visualized orbits: Orbital contents are intact. Cervical spine: Fracture: None. Osseous structures: Multilevel degenerative disc disease changes with endplate spurring and disc oste ophyte complex's. Vertebral alignment: Within normal limits. Spinal canal/Neural Foramina: No evidence of significant spinal canal narrowing. No evidence for sign ificant neural foraminal stenosis. Neck soft tissues: Prevertebral soft tissues are within normal limits. Other: The airway is patent. The lung apices are clear. IMPRESSION: 1. No acute intracranial process. 2. No evidence of cervical spine fracture. 3. Mild multilevel degenerative disc disease. [facility], , 04/17/2024 6:32 PM
[2024-04-17 18:51] LABS: INR 0.9 (<1.2); Partial Thromboplastin Time 22.5 sec (22.0-30.0); Prothrombin Time 10.6 sec (10.0-12.5)
[2024-04-17] MEDS ORDERED: LORazepam 2 MG/ML INJ IV PRN (20:03)
[2024-04-17] MEDS ORDERED: LORazepam 0.5 MG TAB PO PRN (20:03)
[2024-04-17] MEDS: SODIUM CHLORIDE 0.9% 1,000 ML IV SCH (21:01)
[2024-04-17] MEDS: LORazepam 2 MG/ML INJ IV PRN (21:59)
[2024-04-18] MEDS: LORazepam 2 MG/ML INJ IV PRN (00:19)
[2024-04-18] MEDS: LORazepam 1 MG TAB PO PRN (02:02)
--- NOTE | 2024-04-18 02:15 | P.HPIM ---
History of Present Illness H&P Date: 04/17/24 49-year-old female with intermittent asthma and alcohol abuse Patient evaluated scheduled for detox from alcohol she admits to heavy drinking today she gets a wasted and fell in the bathroom hit her face denies any loss of consciousness but afterwards decided to come to the hospital for evaluation if she decided to stay in the hospital to help her through detox Currently denies any headache changes in vision or hearing denies any nausea vomiting chest pain trouble breathing abdominal pain denies any GI bleeding review of systems Pertinent positives as noted in HPI. All other systems were reviewed and are negative on exam Constitutional: No acute distress, conversant, pleasant Eyes: Anicteric sclerae, moist conjunctiva, Pupils equal round reactive to light ENMT: NC/bruising over the chin over the left submental side no open cuts or wounds no bleeding Oropharynx clear, no erythema, or exudates Neck: Supple, no masses, or JVD No carotid bruits No thyromegaly Lungs: Clear to auscultation Clear to percussion Normal respiratory effort, no accessory muscle use Cardiovascular: Heart regular in rate and rhythm, No murmurs, gallops, or rubs No peripheral edema Abdominal: Soft Nontender, no guarding, rebound or rigidity Abdomen moving with respiration Normoactive bowel sounds Extremities: No digital cyanosis No clubbing Pedal pulses intact and symmetrical Radial pulses intact and symmetrical No calf tenderness Psychiatric: Alert and oriented to person, place and time Appropriate affect fair judgement Neuro Muscles Strength 5/5 in all 4 extremities Sensation to light touch grossly present throughout Cranial nerves II-XII grossly intact Past Medical History Past Medical History: Asthma Additional Past Medical History / Comment(s): , Hx. of endometriosis. etoh History of Any Multi-Drug Resistant Organisms: None Reported Past Surgical History: Orthopedic Surgery Additional Past Surgical History / Comment(s): R knee surgery, Laparotomy. Right finger surgery with 3 pins Past Anesthesia/Blood Transfusion Reactions: No Reported Reaction Past Psychological History: Anxiety Smoking Status: Current every day smoker Past Alcohol Use History: Abuse, Daily Additional Past Alcohol Use History / Comment(s): . Past Drug Use History: Marijuana - Past Family History Mother Family Medical History: No Reported History Medications and Allergies Home Medications Medication Instructions Recorded Confirmed Type No Known Home Medications 04/17/24 04/17/24 History Allergies Allergy/AdvReac Type Severity Reaction Status Date / Time clarithromycin [From axin] AdvReac Nausea & Verified 04/17/24 20:45 Vomiting & Diarrhea codeine AdvReac Hallucinati Verified 04/17/24 20:45 ons sulfamethoxazole AdvReac Nausea & Verified 04/17/24 20:45 [From Bactrim] Vomiting & Diarrhea trimethoprim [From Bactrim] AdvReac Nausea & Verified 04/17/24 20:45 Vomiting & Diarrhea Physical Exam Vitals: Vital Signs Temp Pulse Pulse Resp BP BP Pulse Ox 04/18/24 01:17 98.6 F 111 H 12 121/78 92 L 04/17/24 23:00 98.7 F 105 H 14 126/81 94 L 04/17/24 20:18 120 H 16 121/89 97 04/17/24 17:08 98.3 F 138 H 18 143/104 94 L Intake and Output 04/17/24 04/17/24 04/18/24 14:59 22:59 06:59 Intake Total 240 Balance 240 Intake: Oral 240 Other: Voiding Method Toilet Weight 60.5 kg Results CBC & Chem 7: 04/17/24 17:45 04/17/24 17:45 Labs: Abnormal Lab Results - Last 24 Hours (Table) 04/17/24 04/17/24 04/17/24 Range/Units 17:30 17:45 17:45 WBC 12.0 H (3.8-10.6) k/uL RDW 18.6 H (11.5-15.5) % Plt Count 523 H (150-450) k/uL Carbon Dioxide 20 L (22-30) mmol/L Glucose 121 H (74-99) mg/dL AST 86 H (14-36) U/L ALT 53 H (4-34) U/L Total Protein 8.3 H (6.3-8.2) g/dL Albumin 5.1 H (3.5-5.0) g/dL Urine Appearance Cloudy H (Clear) Urine Protein 2+ H (Negative) Urine Ketones 1+ H (Negative) Urine Blood Small H (Negative) Ur Squamous Epith Cells 5 H (0-4) /hpf Urine Bacteria Rare H (None) /hpf Hyaline Casts 10 H (0-2) /lpf Urine Mucus Moderate H (None) /hpf U Marijuana (THC) Screen Detected H (NotDetected) Thrombosis Risk Factor Assmnt - Choose All That Apply Any of the Below Risk Factors Present?: Yes Each Factor Represents 1 point: Age 41-60 years Other Risk Factors: No Other congenital or acquired thrombophilia - If yes, enter type in comment: No Thrombosis Risk Factor Assessment Total Risk Factor Score: 1 Thrombosis Risk Factor Assessment Level: Low Risk Assessment and Plan Assessment: 49-year-old female with intermittent asthma and alcohol abuse coming in the hospital for evaluation after a fall at home discussed case with ED doctor and accepted the admission for alcohol dependence pending withdrawal with anticipated length of stay less than 2 midnights Alcohol dependence and abuse pending withdrawal Benzo per CIWA scale Thiamine p.o. daily IV fluid hydration normal saline 100 cc/h Fall precautions Seizure precautions CT scan of the head showed no acute intracranial pathology Transaminitis secondary to alcohol abuse AST 86 ALT 53 Continue to monitor Intermittent asthma DuoNebs as needed as needed for shortness of breath Rest of the blood work overall unremarkable hemoglobin 12.8 white count 12 sodium 138 potassium 4.2. 15 creatinine 0.6 Full code DVT prophylaxis Lovenox 40 mg subcu daily GI prophylaxis Protonix 40 mg p.o. daily
[2024-04-18] MEDS ORDERED: IPRATROPIUM-ALBUTEROL 3 ML NEB INHALATION PRN (02:16)
[2024-04-18] MEDS: PANTOPRAZOLE 40 MG TABLET PO SCH (08:10)
[2024-04-18] MEDS: ENOXAPARIN 40 MG/0.4 ML SYRINGE SQ SCH (08:10)
[2024-04-18] MEDS: MULTIVITAMINS, THERA 1 EACH TAB PO SCH (08:10)
[2024-04-18] MEDS: THIAMINE 100 MG TAB PO SCH (08:10)
[2024-04-18] MEDS ORDERED: LORazepam 2 MG/ML INJ IV PRN (10:59)
[2024-04-18] MEDS ORDERED: LORazepam 1 MG/0.5 ML VIAL IV PRN (10:59)
[2024-04-18] MEDS: LORazepam 1 MG/0.5 ML VIAL IV PRN ×2 (11:44→20:27)
[2024-04-18] MEDS: MORPHINE SULFATE 2 MG/ML SYRINGE IVP STA (13:17)
[2024-04-18] MEDS: NICOTINE 14MG/24HR PATCH TRANSDERM SCH (13:17)
--- NOTE | 2024-04-18 15:12 | XR ---
EXAMINATION TYPE: XR ribs LT DATE OF EXAM: 04/18/2024 2:56 PM INDICATION: Patient age:Female; 49 years old; Reason for study: Rib pain; PHH. pain COMPARISON: Chest radiograph 04/12/2013 TECHNIQUE: Frontal and oblique views of the left ribs FINDINGS: Acute mildly displaced left lateral ninth and 10th rib fractures. No evidence of fracture. Overall, the lungs are clear. The cardiac silhouette is normal in size. The remaining osseous stru ctures are intact. IMPRESSION: Acute mildly displaced left lateral ninth and 10th rib fractures. No pneumothorax. [facility], , 04/18/2024 3:09 PM
--- NOTE | 2024-04-18 15:52 | P.PN ---
Subjective Progress Note Date: 04/18/24 49 year old F with Asthma and EtOH abuse presents to the ED after a fall while intoxicated. In the ED she underwent extensive evaluation. BP 143/104, HR 138, T 98.3F, RR 18, 94% on RA. CBC, Coag panel, CMP significant for WBC 12, Plt 523, bicarb 20, glu 121, AST 86, ALT 53, alb 5.1. Trop < 0.012. UA small blood, neg LE or nitrite. UDS + THC. EtOH 145. EKG sinus tachycardia rate of 144. CT head C-spine no acute process. Admitted for further workup and management. 04/18 Patient was seen and examined. Reports left sided rib pain. 4 mg IV ativan over the past 24H. General: non toxic, moderate distress, appears at stated age Derm: warm, dry, bruising over the chin over the left submental side no open c uts or wounds no bleeding Head: atraumatic, normocephalic, symmetric Eyes: EOMI, no lid lag, anicteric sclera Mouth: no lip lesion, mucus membranes moist Cardiovascular: S1S2 tachy, no murmur Lungs: CTA bilateral, no rhonchi, no rales , no accessory muscle use Ext: no gross muscle atrophy, no edema, no contractures Neuro: no focal neuro deficits Psych: Alert and oriented. Based on my assessment of this patient, this patient meets a high complexity level of care. Alcohol withdrawal: CIWA protocol with Ativan PRN. Start Librium 25 mg PO TID. Fall and seizure precautions. Transaminitis likely due to EtOH abuse. Left rib pain: Obtain rib XR. Morphine 2 mg IV Q4H PRN. CODE STATUS: FULL CODE. DVT Prophylaxis: SCD GI Prophylaxis: Protonix IV Designated medical POA if patient is not able to make medical decisions for themselves: I have reviewed the following dynamics ax consultant notes: I have reviewed the results of the following tests: I have ordered the following tests: Rib XR I have discussed the care of this patient with the following independent historian: SONY. I have independently interpreted the following test below: I have discussed the management of this patient with the following physician: Objective - Vital Signs Vital signs: Vital Signs Temp 98.4 F 04/18/24 12:17 Pulse 102 H 04/18/24 12:17 Resp 22 04/18/24 12:17 BP 128/86 04/18/24 12:17 Pulse Ox 95 04/18/24 12:17 FiO2 Intake & Output 04/17/24 04/18/24 04/18/24 18:59 06:59 18:59 Intake Total 2570 Balance 2570 Weight 55.883 kg 60.5 kg Intake: Intake, IV Titration 1170 Amount Sodium Chloride 0.9% 1, 1170 000 ml @ 130 mls/hr IV . [id number] [facility] Rx#:[id number] Oral 1400 Other: Voiding Method Toilet Toilet # Voids 2 - Labs CBC & Chem 7: 04/17/24 17:45 04/17/24 17:45 Labs: Abnormal Lab Results - Last 24 Hours (Table) 04/17/24 04/17/24 04/17/24 Range/Units 17:30 17:45 17:45 WBC 12.0 H (3.8-10.6) k/uL RDW 18.6 H (11.5-15.5) % Plt Count 523 H (150-450) k/uL Carbon Dioxide 20 L (22-30) mmol/L Glucose 121 H (74-99) mg/dL AST 86 H (14-36) U/L ALT 53 H (4-34) U/L Total Protein 8.3 H (6.3-8.2) g/dL Albumin 5.1 H (3.5-5.0) g/dL Urine Appearance Cloudy H (Clear) Urine Protein 2+ H (Negative) Urine Ketones 1+ H (Negative) Urine Blood Small H (Negative) Ur Squamous Epith Cells 5 H (0-4) /hpf Urine Bacteria Rare H (None) /hpf Hyaline Casts 10 H (0-2) /lpf Urine Mucus Moderate H (None) /hpf U Marijuana (THC) Screen Detected H (NotDetected)
[2024-04-18] MEDS: chlordiazePOXIDE 25 MG CAP PO SCH (16:18)
[2024-04-18] MEDS: MORPHINE SULFATE 2 MG/ML SYRINGE IVP PRN (17:19)
[2024-04-18] MEDS: ONDANSETRON 4 MG/2 ML VIAL IVP PRN (22:51)
[2024-04-19 02:13] VITALS: TEMP 97.8
[2024-04-19 07:38] VITALS: BP 144/89; PULSE 91; RESP 19
[2024-04-19] MEDS: chlordiazePOXIDE 25 MG CAP PO STA (11:19)
[2024-04-19] MEDS: HYDROcodone/APAP 7.5-325MG 1 EACH TAB PO PRN (11:19)
--- NOTE | 2024-04-19 12:50 | P.DS ---
Providers Date of admission: 04/17/24 20:01 Expected date of discharge: 04/19/24 Attending physician: Randy Ron MD Primary care physician: [facility] Course: 49 year old F with Asthma and EtOH abuse presents to the ED after a fall while intoxicated. In the ED she underwent extensive evaluation. BP 143/104, HR 138, T 98.3F, RR 18, 94% on RA. CBC, Coag panel, CMP significant for WBC 12, Plt 523, bicarb 20, glu 121, AST 86, ALT 53, alb 5.1. Trop < 0.012. UA small blood, neg LE or nitrite. UDS + THC. EtOH 145. EKG sinus tachycardia rate of 144. CT head C-spine no acute process. Admitted for further workup and management. 04/18 Patient was seen and examined. Reports left sided rib pain. 4 mg IV ativan over the past 24H. 04/19 Patient was seen and examined. She reports well controlled left rib pain. 6 mg of IV ativan over the past 24H. Cleared by PT and OT. Discharge Plan: Patient adamant that she will not drink after discharge. She is willing to pursue outpatient detox. Plans to discharge the patient home on L ibrium and [place] PRN x 3 days. Advised the importance of not mixing Librium or [place] with alcohol as it can lead to sudden . Patient verbalized understanding of the above plan. General: non toxic, no distress, appears at stated age Derm: warm, dry, bruising over the chin over the left submental side no open cuts or wounds no bleeding Head: atraumatic, normocephalic, symmetric Eyes: EOMI, no lid lag, anicteric sclera Mouth: no lip lesion, mucus membranes moist Cardiovascular: S1S2 reg, no murmur Lungs: CTA bilateral, no rhonchi, no rales , no accessory muscle use Ext: no gross muscle atrophy, no edema, no contractures Neuro: no focal neuro deficits Psych: Alert and oriented. Anxious Dishcarge Diagnosis: Alcohol withdrawal Transaminitis likely due to EtOH abuse. Left rib fracture This complex discharge took 35 minutes to complete. Patient Condition at Discharge: Stable Plan - Discharge Summary Discharge Rx Participant: No New Discharge Prescriptions: New HYDROcodone/APAP 7.5-325MG [[place] 7.5-325] 1 each PO Q6HR PRN #12 tab PRN Reason: Pain chlordiazePOXIDE HCl [Librium] 25 mg PO Q6HR #12 cap Discharge Medication List HYDROcodone/APAP 7.5-325MG [[place] 7.5-325] 1 each PO Q6HR PRN #12 tab 04/19/24 [Rx] chlordiazePOXIDE HCl [Librium] 25 mg PO Q6HR #12 cap 04/19/24 [Rx] Follow up Appointment(s)/Referral(s): Yajaira Becker MD [Primary Care Provider] - 1-2 days Activity/Diet/Wound Care/Special Instructions: DO NOT MIX LIBRIUM OR NORCO WITH ALCOHOL IT CAN LEAD TO SUDDEN . Discharge Disposition: HOME SELF-CARE
[2024-04-19] MEDS ORDERED: chlordiazePOXIDE 25 MG CAP PO SCH (16:00)
== END 2024-04-19 13:26 | disposition home or self-care (01) ==
LOC: EC 16:23 → 5NMEDONC 20:01
PROVIDERS: ADMIT Internal Medicine; ATTEND Internal Medicine
DX: F10.239 Alcohol dependence with withdrawal, unspecified (principal); F10.229 Alcohol dependence with intoxication, unspecified; S00.83XA Contusion of other part of head, initial encounter; S22.42XA Multiple fractures of ribs, left side, initial encounter for closed fracture; W18.2XXA Fall in (into) shower or empty bathtub, initial encounter; Y92.002 Bathroom of unspecified non-institutional (private) residence as the place of occurrence of the external cause; Y93.E1 Activity, personal bathing and showering; J45.20 Mild intermittent asthma, uncomplicated; K72.90 Hepatic failure, unspecified without coma; Y90.6 Blood alcohol level of 120-199 mg/100 ml; R53.1 Weakness; R20.0 Anesthesia of skin; F17.200 Nicotine dependence, unspecified, uncomplicated; Z79.899 Other long term (current) drug therapy; Z88.1 Allergy status to other antibiotic agents; Z88.5 Allergy status to narcotic agent
CPT/HCPCS: 96376 ×4; 96361 ×4; 96372 ×2; 96375 ×2; 96374; 99285; 36415; 93005; 97161; 80053; 83735; 84100; 84484; 85025; 85610; 85730; 81001; 80306; 71100; 72125; 70450; G0378 ×3; G0480; S4990 ×2; J2060 ×3; J2405 ×2; J1650 ×2; J2270 ×2; 80320